=== PATIENT | male | born 1960 | race Caucasian/White ===

== ENCOUNTER 2022-01-29 15:17 | Observation (INO) | payer OTHER ==
[~2022-01-29] VITALS: Wt 86.4 kg
[2022-01-29 15:41] LABS: BASO # 0.1 K/mm3 (0.0-0.2); BASO % 0.6 % (0.0-2.0); EOS # 0.4 K/mm3 (0.0-0.7); EOS % 3.5 % (0.0-4.0); GRAN # 8.1 K/mm3 (1.4-6.5); HEMATOCRIT 48.8 % (42.0-52.0); HEMOGLOBIN 16.9 g/dl (13.5-18.0); LYMPH # 1.9 K/mm3 (1.2-3.4); MEAN CELL VOLUME 94 fl (80.0-100.0); MEAN CORPUSCULAR HEMOGLOBIN 33 pg (27-31); MEAN CORPUSCULAR HGB CONC 35 g/dl (33.0-37.0); MEAN PLATELET VOLUME 10.8 fl (7.4-10.4); MONO # 0.7 K/mm3 (0.1-0.6); MONO % 6.4 % (1.7-9.3); PLATELET COUNT 247 K/mm3 (130-400); RED BLOOD COUNT 5.18 M/mm3 (4.20-5.60); REDCELL DISTRIBUTION WIDTH-CV 12.8 % (11.5-14.5)
[2022-01-29 16:03] LABS: ALBUMIN 4.2 gm/dL (3.4-4.8); BILIRUBIN,TOTAL 0.3 mg/dL (0.2-1.2); CALCIUM 8.7 mg/dL (8.4-10.2); CREATININE, serum 1.08 mg/dL (0.72-1.25); TOTAL PROTEIN 8.5 gm/dL (6.2-8.1)
[2022-01-29 21:30] VITALS: BP 143/75; PULSE 71
--- NOTE | 2022-01-29 21:52 | NUR ---
PT TO FLOOR PER BED AFTER IND/ORIF TIB/FIB, IN BRACE W DSG UNDERNEATH. WIGGLING TOES, ALERT AND OX4. TOLERATING ICE CHIP AND SIPS. VS INITATED. SCD ON LT LEG W LANDON HOSE. RATING PAIN 10 , IV MEDS GIVEN. IV FLUIDS STARTED . POC DISCUSSED. CALL LIGHT WI REACH.
[2022-01-29 22:00] VITALS: BP 133/68; PULSE 70
--- NOTE | 2022-01-29 22:12 | NUR ---
NOT ON UNIT UNTIL 2039
[2022-01-29 22:30] VITALS: BP 132/68; PULSE 70
[2022-01-29 23:30] VITALS: BP 128/61; PULSE 68
[2022-01-29 23:38] VITALS: BP 132/68; PULSE 68; TEMP 97.8
[2022-01-29 23:45] VITALS: BP 132/68; PULSE 70; TEMP 98.3
[2022-01-30] MEDS ORDERED: ANDROGEL1.62% TOP (01:13)
[2022-01-30] MEDS ORDERED: LIPITOR 10MG10 MG PO (01:13)
[2022-01-30 04:54] VITALS: BP 130/58; PULSE 70; TEMP 97.9
--- NOTE | 2022-01-30 05:31 | NUR ---
RESTED THOUGH THE NIGHT, IV PAIN MEDS GIVEN. NEEDS ARE MET.
[2022-01-30] MEDS ORDERED: OXY IR5 MG PO (07:13)
[2022-01-30] MEDS ORDERED: ASPIRIN 32325 MG/TAB PO (07:13)
[2022-01-30 07:41] VITALS: BP 161/73; PULSE 83; TEMP 98.4
--- NOTE | 2022-01-30 08:08 | NUR ---
PT RESTING IN BED. ORDERED BREAKFAST. TRINH PEREZ FOR ORTHO ROUNDED ON PT NEW ORDERS RECIEVED, PLAN ON DISCHARGE AFTER LAST ABX COMPLETE. INFORMED PT OF DISCHARGE PLAN. PT VERBALIZED UNDERSTANDING.
--- NOTE | 2022-01-30 10:25 | NUR ---
Social Work student met with patient to discuss discharge planning. Patient states that he lives in [place] by himself. His sister, Anamika(ph#[phone]), is listed as an emergency contact. The patient sees the [facility] in [place] for primary care, and he receives his medications in the mail from the [facility] as well. He states he does not have any probelms with affording those medications. He does not utilize any durable medical equiptment at home, and he states he is independent with his ADL's. His insurance was listed as self-pay, so LANDON followed up and asked patient if this was correct. Patient stated that it was not, and that he had [facility]. LANDON received an insurance card from the patient, copied it, and LANDON Rodriguez emailed it to admissions and Destinyelis in the finance department. Patient also stated that he has ordered a kneewalker from [employer] and he has crutches at home. Discharge plan: Home
[2022-01-30 11:22] VITALS: BP 151/78; PULSE 79; TEMP 98.1
--- NOTE | 2022-01-30 11:27 | NUR ---
First visit from the project management consultant. No needs right now.
[2022-01-30 13:22] VITALS: BP 142/65; PULSE 75; TEMP 98.4
[2022-01-30 15:44] VITALS: BP 150/76; PULSE 74; TEMP 98.1
--- NOTE | 2022-01-30 19:09 | NUR ---
during report from diaz BOYCE, patient wasnt in room. had been walked out by STREET [employer]CH[employer]. patient discharged.
== END 2022-01-30 18:46 | disposition home or self-care (01) ==
LOC: COL.ER 15:17 → SURG 17:56
PROVIDERS: Emergency Medicine; ADMIT Orthopaedic Surgery Sports Medicine
DX: S82.831B Other fracture of upper and lower end of right fibula, initial encounter for open fracture type I or II (principal); S82.301B Unspecified fracture of lower end of right tibia, initial encounter for open fracture type I or II; F17.200 Nicotine dependence, unspecified, uncomplicated
CPT/HCPCS: A9284; C1713; G0378; J0330; J0690; J1100; J1170; J1885; J2405; J2704; J2765; J3010